=== PATIENT | female | born 1940 | race Caucasian/White ===

== ENCOUNTER → 2017-04-13 | Outpatient (CLI) | payer BC, MEDICARE ==
[~2017-04-13] MED LIST: BISOPROLOL 5MG T5 MG PO; CARTIA XT240 MG PO; CELEXA20 MG PO; HYDROCHLOROTHIA25 M1 PO; LEVOTHYROXINE0.05 MG PO; OMEPRAZOLE40 MG PO; PERCOCET 5/3251 EACH PO; PRAVACHOL 40MG40 MG PO; XARELTO20 MG PO
--- NOTE | 2017-04-13 14:54 | RADIOLOGY REPORT PS360 ---
CT LUMBAR SPINE W/O CONTRAST CLINICAL INDICATION: LOW BACK PAIN ORDERING PHYSICIAN: Greg Haas MD PATIENT AGE: 77 years COMPARISON: None TECHNIQUE:Axial, sagittal, and coronal images are generated and reviewed without contrast COMPARISON: None FINDINGS: There is normal alignment. No acute fracture or dislocation evident. No lytic or blastic change. Mild degenerative disc disease T12-L1. L1-L2 and L2-L3 have an unremarkable appearance. L3-L4: Mild bulging disc along with mild facet and ligamentum flavum hypertrophy. L4-5: Bulging disc with facet and ligamentum flavum hypertrophic change with mild bilateral lateral recess and foraminal narrowing. L5-S1: Moderate to severe degenerative disc disease with bulging disc along the facet and ligamentum hypertrophy and endplate spurring with moderate bilateral lateral recess and foraminal narrowing. Small central disc protrusion is present at this level. IMPRESSION: 1. 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 Please see above for detailed description at each level. 2. Moderate to severe degenerative disc disease L5-S1 with small central disc protrusion and moderate bilateral lateral recess and foraminal narrowing
== END ==
LOC: RAD 13:22
DX: M54.5 Low back pain (principal)